=== PATIENT | female | born 2000 | race Caucasian/White ===

== ENCOUNTER → 2022-03-13 11:16 | Outpatient (CLI) | payer OTHER, SELFPAY ==
--- NOTE | ~2022-03-13 | US_ITS ---
EXAMINATION: US pelvic complete DATE: 03/13/2022 13:24 INDICATION: Dysmenorrhea Comparison:No prior studies for comparison. TECHNIQUE: Multiple transabdominal sonographic images of the pelvis performed. FINDINGS: The uterus measures 6.8 x 2.7 x 4 cm. The endometrial complex measures 5 mm. The right ovary measures 3.9 x 2 x 2.8 cm and the left ovary measures 5 x 1.6 x 1.4 cm. There are sm all follicles in each ovary. Normal doppler signal in both ovaries. There is no free fluid in the pelvis. There are no abnormal masses seen on either side. IMPRESSION: 1. Normal pelvic ultrasound. Reviewed, dictated and finalized at location B.
== END ==
PROVIDERS: PCP Physician Assistant; Visit Provider Physician Assistant
DX: N94.6 Dysmenorrhea, unspecified (principal)
CPT/HCPCS: 76856

== ENCOUNTER 2025-05-06 16:29 | Emergency (ER) | payer OTHER, SELFPAY ==
--- NOTE | 2025-05-06 16:31 | ED_ITS ---
HPI - Skin/Abscess/Foreign Bdy General Chief complaint: Skin/Abscess/Foreign Body Stated complaint: BEE STING Time Seen by Provider: 05/06/25 16:31 Source: patient Mode of arrival: ambulatory Limitations: no limitations History of Present Illness HPI narrative: Patient is a 25-year-old female who presents with bee sting 8 days ago. States area remains swollen and itchy. Has used ice and taking Claritin. Denies any shortness of breath, fever, chills, nausea, vomiting, diarrhea. Related Data Allergies Allergy/AdvReac Type Severity Reaction Status Date / Time No Known Allergies Allergy Verified 05/06/25 16:38 Review of Systems 2 Review of Systems: All systems reviewed & are unremarkable except as noted in HPI and below Constitutional: Constitutional: Denies body ache(s), Denies chills, Denies fatigue, Denies fever(s), Denies headache(s), Denies malaise and Denies weakness Eyes: Eyes: Denies blurry vision, Denies irritation and Denies loss of vision ENT: Denies otalgia, Denies headache(s), Denies nasal discharge, Denies sinus pain and Denies sore throat Cardiovascular: Cardiovascular: Denies chest pain, Denies irregular heart rhythm and Denies dyspnea Respiratory: Respiratory: Denies dyspnea Gastrointestinal: Gastrointestinal: Denies abdominal pain, Denies melena, Denies hematochezia, Denies diarrhea, Denies nausea and Denies vomiting Musculoskeletal: Musculoskeletal: Denies back pain, Denies myalgias and Denies arthralgias Integumentary/Breasts: Skin/Breast: Reports swelling, Reports pruritus, Reports erythema and Denies rash Neurologic: Denies headache(s), Denies loss of vision and Denies weakness Psychiatric: Psychiatric: Reports no additional psychiatric complaints Endocrine: Endocrine: Denies fatigue PMFSH Comments At time of signature, agree with nursing past medical, surgical, social and family history. There is no relevant family history pertinent to the presenting complaint. Exam 2 Const: General: cooperative, healthy appearing, comfortable, no acute distress and well nourished Nutritional Appearance: well nourished O rientation/consciousness: patient oriented x3 Limitations: no limitations HENMT: Head: normal to inspection, normocephalic and atraumatic Ears: h earing grossly normal bilaterally and external ears normal Face/Nose/Sinus: N ormal external nose present, normal facial exam and face symmetric Face and sinus: normal facial exam and face symmetric Mouth: Yes lip normal Eyes: General: appearance normal, both eyes and all related structures A lignment and Position: alignment normal and position normal Periorbital: p eriorbital findings normal Eyelids: eyelids normal Pupils: Equal, round and reactive pupils present EOM: EOMs intact bilaterally Neck: Neck: normal visual inspection, full ROM and supple Chest: Chest palpation & inspection: normal inspection of the chest Resp: Effort & Inspection: normal respiratory effort and able to speak in complete sentences Auscultation: clear to auscultation bilaterally Cardio: Rate: regular rate Rhythm: regular rhythm Heart sounds: S1 normal heart sound present and S2 normal heart sound present GI: Inspection: normal to inspection Skin: General skin exam: normal color and no rashes or lesions noted Neuro: General: patient oriented x3 and moves all extremities Cranial nerves: Yes Equal, round and reactive pupils present Speech: normal speech Gait exam (Neuro): Normal gait present Extrem: General: normal to inspection, full ROM and no edema Ankle/foot/toe images: 1. mild swelling and erythema. NO induration or fluctuation. No open wound or drainage Psych: Appearance: grossly normal and well kempt Mental Status: mental status grossly normal Speech and movement: Normal speech and movement present Affect: normal affect Attitude: cooperative Thought process: Normal thought process present Course Course Emergency Course: Patient is aware of diagnosis, understands and agrees to treatment plan. Anticipatory guidance given. Patient agrees to follow-up as directed and is aware of reasons to seek care at the emergency department. Portions of this record may have been created with voice recognition software Level of Care: Express Care Visit Vital Signs Vital signs: Reviewed MDM - Skin/Abscess/Foreign Bdy MDM Narrative Medical decision making narrative: Pt well hydrated appearing, in no respiratory distress, hemodynamically stable. Recommend supportive care. The patient is stable at time of discharge the clinical impression was discussed and the patient was given the opportunity to ask questions, which were addressed as completely as possible given the information available at present. Anticipatory guidance and return to care precautions were discussed and the importance of primary care follow-up was stressed and encouraged. The patient voiced understanding of the plan, indications to return, and the need for follow-up. Exam findings show no acute concerns or changes Patient is appropriate for outpatient treatment and follow-up. Differential Diagnosis Differential diagnosis: Likely allergic reaction to drug, cellulitis and insect bites (Sting) Discharge Plan Discharge Clinical Impression: Bee sting Patient Disposition: Home Condition: Stable Instructions: Insect Bite or Sting (ED) Additional Instructions: Use topical antibiotic ointment Seek Emergency Help If You Notice: ? Difficulty breathing or swallowing ? Swelling of the lips, tongue, or throat ? Hives over a large area ? Dizziness or fainting ? Nausea, vomiting, or a racing heart These may indicate anaphylaxis, a life-threatening allergic reaction. Call 911 or go to the ER immediately. For Less Severe Reactions (but with significant swelling): 1.?Antihistamines ? Diphenhydramine (Benadryl): 25?50 mg every 4?6 hours (adults) ? Non-drowsy alternatives: cetirizine (Zyrtec), loratadine (Claritin), fexofenadine (Patsy) 2.?Cold Compress ? Apply a cold pack or cloth-wrapped ice to the area for 10?15 minutes at a time to reduce swelling and pain. 3.?Elevation ? Keep elevated, especially when lying down, to help reduce swelling. 4.?Pain Relief ? Tylenol 650-1000mg by mouth every 4-6 hours. Do not exceed 4000mg in 24 hours. ? Advil (Ibuprofen) 600 mg by mouth every 6 hours. Do not exceed 2400mg in 24 hours. 8 AM: Tylenol 11 AM: Ibuprofen 2 PM: Tylenol 5 PM: Ibuprofen 8 PM: Tylenol 11 PM: Ibuprofen 2 AM: Tylenol 5 AM: Ibuprofen 5.?Topical Corticosteroids ? Apply 1% hydrocortisone cream to the sting site (avoid near eyes or open skin). When to See a Doctor (even if not life-threatening): ? Swelling continues to worsen after 24 hours ? Sting is near the eye or airway ? Signs of infection develop (redness, warmth, pus) ? You?ve had allergic reactions to stings in the past Patient Language: Setswana Prescriptions: New mupirocin 2 % ointment 1 applic topical BID Qty: 15 0RF Follow-up/Referrals: Sole,ROJELIO You [Primary Care Provider] - Time of Disposition: 16:52
[2025-05-06 16:38] VITALS: BP 141/89; PULSE 95; RESP 16; TEMP 36.4; O2SAT 100
== END 2025-05-06 16:58 | disposition home or self-care (01) ==
PROVIDERS: Emergency Provider Nurse Practitioner Family; PCP Physician Assistant
DX: T63.441A Toxic effect of venom of bees, accidental (unintentional), initial encounter (principal); R22.41 Localized swelling, mass and lump, right lower limb
CPT/HCPCS: 99213; G0463